=== PATIENT | male | born 1965 | race Hispanic/Latino ===

== ENCOUNTER 2024-04-29 19:59 | Inpatient (IN) | payer OTHER ==
[~2024-04-29] VITALS: Ht 175.3 cm; Wt 50.3 kg
[2024-04-29 23:40] VITALS: BP 149/84; PULSE 80; RESP 19
[2024-04-30] MEDS ORDERED: HEPARIN 5,000 UNIT VIAL SQ SCH (03:30)
[2024-04-30] MEDS ORDERED: GLUCAGON 1MG KIT 1 MG ML IM PRN (03:30)
[2024-04-30] MEDS ORDERED: ONDANSETRON 4MG INJ IV PRN (03:30)
[2024-04-30] MEDS ORDERED: DEXTROSE 50%-WATER 50 ML DISP.SYRIN IV PRN (03:30)
[2024-04-30 04:18] VITALS: BP 149/78; PULSE 74; RESP 18
[2024-04-30 05:28] LABS: BASOPHILS # (AUTO) 0.05 K/uL (0.00-0.20); BASOPHILS % (AUTO) 0.5 % (0.0-5.0); EOSINOPHILS # (AUTO) 0.18 K/uL (0.00-0.70); EOSINOPHILS % (AUTO) 1.8 % (0.0-8.0); HEMATOCRIT 28.2 % (42-54); IMMATURE GRANULOCYTE ABSOLUTE 0.46 K/uL (0-1); LYMPHOCYTES # (AUTO) 1.6 K/uL (1.0-4.8); MEAN CORPUSCULAR HEMOGLOBIN 33.6 pg (27.0-33.0); MEAN CORPUSCULAR HGB CONC 34.8 g/dL (32.0-36.0); MEAN CORPUSCULAR VOLUME 96.6 fL (79-99); MONOCYTES # (AUTO) 0.8 K/uL (0.1-1.0); MONOCYTES % (AUTO) 7.6 % (3.0-13.0); NEUTROPHILS # (AUTO) 7.1 K/uL (1.8-7.7); NEUTROPHILS % (AUTO) 69.6 % (40.0-77.0); PLATELET COUNT (AUTO) 228 K/uL (130-400); RED BLOOD CELL COUNT(AUTO) 2.92 MIL/uL (4.50-6.20); RED CELL DISTRIBUTION WIDTH 12.4 % (11.0-15.5); WHITE BLOOD COUNT (AUTO) 10.2 K/uL (4.8-10.8)
[2024-04-30 05:41] LABS: INR 1.03 (0.85-1.15); PROTHROMBIN TIME 11.1 SEC (9.6-11.6)
[2024-04-30 05:43] LABS: PARTIAL THROMBOPLASTIN TIME 29.5 SEC (26.3-35.5)
[2024-04-30 05:50] LABS: ALBUMIN 2.8 g/dL (3.5-5.0); BILIRUBIN,TOTAL 0.4 mg/dL (0.2-1.0); CREATININE 2.4 mg/dL (0.5-1.3); MAGNESIUM 1.1 mg/dL (1.80-2.40); POTASSIUM 3.5 mmol/L (3.5-5.1); TOTAL PROTEIN, SERUM 6.8 g/dL (6.0-8.3)
[2024-04-30 06:26] LABS: B-TYPE NATRIURETIC PEPTIDE 125 pg/mL (0-100)
[2024-04-30] MEDS: INSULIN HUMULIN R 100 UNIT/ML 3ML SQ SCH (07:30)
[2024-04-30 08:00] VITALS: BP 150/77; PULSE 76; RESP 18
[2024-04-30] MEDS: FAMOTIDINE 20MG VIAL IV SCH (08:56)
[2024-04-30] MEDS: ZOSYN 3.375GM+NS 50ML IV SCH (08:56)
[2024-04-30] MEDS ORDERED: ASPIRIN 81 MG EC TAB PO SCH (09:00)
[2024-04-30 12:00] VITALS: BP 152/80; PULSE 88; RESP 18
[2024-04-30] MEDS ORDERED: TELM1TAB42 PO (14:50)
[2024-04-30] MEDS ORDERED: METF-445 PO (14:51)
[2024-04-30 16:00] VITALS: BP 141/91; PULSE 83; RESP 18
[2024-04-30] MEDS: TAMSULOSIN HCL 0.4 MG CAP.ER.24H PO SCH (17:39)
[2024-04-30 20:00] VITALS: O2SAT 98
[2024-04-30 20:29] VITALS: BP 152/86; PULSE 76; RESP 19
[2024-05-01] VITALS (8 sets, daily range): BP systolic 140–160; BP diastolic 72–87; PULSE 72–94; RESP 16–19; O2SAT 98
[2024-05-01] MEDS: HYDRALAZINE 20MG/ML VIAL IV PRN (00:15)
[2024-05-01 04:42] LABS: BASOPHILS # (AUTO) 0.04 K/uL (0.00-0.20); BASOPHILS % (AUTO) 0.3 % (0.0-5.0); EOSINOPHILS # (AUTO) 0.14 K/uL (0.00-0.70); EOSINOPHILS % (AUTO) 1.1 % (0.0-8.0); HEMATOCRIT 29.9 % (42-54); LYMPHOCYTES # (AUTO) 1.5 K/uL (1.0-4.8); LYMPHOCYTES % (AUTO) 12.1 % (21.0-51.0); MEAN CORPUSCULAR HEMOGLOBIN 33.7 pg (27.0-33.0); MEAN CORPUSCULAR HGB CONC 34.1 g/dL (32.0-36.0); MEAN CORPUSCULAR VOLUME 98.7 fL (79-99); MONOCYTES % (AUTO) 8.1 % (3.0-13.0); NEUTROPHILS # (AUTO) 9.5 K/uL (1.8-7.7); NEUTROPHILS % (AUTO) 74.5 % (40.0-77.0); PLATELET COUNT (AUTO) 224 K/uL (130-400); RED BLOOD CELL COUNT(AUTO) 3.03 MIL/uL (4.50-6.20); RED CELL DISTRIBUTION WIDTH 12.5 % (11.0-15.5); WHITE BLOOD COUNT (AUTO) 12.8 K/uL (4.8-10.8)
[2024-05-01 05:13] LABS: % IRON SATURATION 13.5 % (30-44)
[2024-05-01 05:17] LABS: HEMOGLOBIN A1C 7.9 % (4.0-6.0)
[2024-05-01 05:40] LABS: B-TYPE NATRIURETIC PEPTIDE 143 pg/mL (0-100)
[2024-05-01 05:44] LABS: BILIRUBIN,TOTAL 0.5 mg/dL (0.2-1.0); CREATININE 2.5 mg/dL (0.5-1.3); MAGNESIUM 1.1 mg/dL (1.80-2.40); POTASSIUM 3.3 mmol/L (3.5-5.1); URIC ACID 6.9 mg/dL (2.6-7.2)
[2024-05-01] MEDS ORDERED: MAGNESIUM 2GM PREMIX 50ML 50 ML IV SCH (08:30)
[2024-05-01] MEDS ORDERED: POTASSIUM CHLORIDE 10% ELIXIR 20 MEQ/15 ML UDCUP PO PRN (08:30)
[2024-05-01] MEDS ORDERED: POTASSIUM CHLORIDE 20MEQ/100ML 100 ML IV PRN (08:30)
[2024-05-01] MEDS: AMLODIPINE 5 MG TAB PO SCH (09:00)
[2024-05-01] MEDS: Vitamin B Complex/Vit C/Folic Acid PO SCH (09:00)
[2024-05-01] MEDS: MAGNESIUM 2GM PREMIX 50ML 50 ML IV PRN (09:01)
[2024-05-01 11:27] LABS: CHOLESTEROL 123 mg/dL (<200); HDL CHOLESTEROL 34 mg/dL (29-71); LDL DIRECT 42 mg/dL (0-99); TRIGLYCERIDES 363 mg/dL (30-200)
[2024-05-01] MEDS: KCL 20 MEQ ERTAB PO PRN (15:21)
[2024-05-01 17:51] LABS: APPEARANCE,URINE CLEAR (CLEAR); BILIRUBIN,URINE NEGATIVE (NEGATIVE); COLOR,URINE LIGHT-YELLOW (YELLOW); GLUCOSE, URINE (UA) >=1000 mg/dL (NEGATIVE); KETONES,URINE 5 mg/dL (NEGATIVE); LEUKOCYTE ESTERASE ,URINE NEGATIVE Leu/uL (NEGATIVE); NITRATE,URINE NEGATIVE (NEGATIVE); PROTEIN,URINE 70 mg/dL (NEGATIVE); UROBILINOGEN,URINE 0.2 mg/dL (0.2-1.0)
[2024-05-01 17:55] LABS: ADD UA MICROSCOPIC YES
[2024-05-01 17:56] LABS: MUCUS,URINE RARE LPF (None Seen); RBC,URINE 0-1 /HPF (0-1); SQUAMOUS EPITHELIAL CELL,UR RARE /HPF (0-2)
[2024-05-01] MEDS: ZOSYN 3.375GM+NS 50ML IV SCH (20:23)
[2024-05-02] VITALS (8 sets, daily range): BP systolic 115–164; BP diastolic 68–93; PULSE 67–92; RESP 16–20; O2SAT 96
[2024-05-02 04:22] LABS: BASOPHILS # (AUTO) 0.04 K/uL (0.00-0.20); BASOPHILS % (AUTO) 0.2 % (0.0-5.0); EOSINOPHILS # (AUTO) 0.15 K/uL (0.00-0.70); EOSINOPHILS % (AUTO) 0.9 % (0.0-8.0); HEMATOCRIT 28.1 % (42-54); IMMATURE GRANULOCYTE ABSOLUTE 0.36 K/uL (0-1); LYMPHOCYTES # (AUTO) 1.7 K/uL (1.0-4.8); LYMPHOCYTES % (AUTO) 9.6 % (21.0-51.0); MEAN CORPUSCULAR HEMOGLOBIN 32.6 pg (27.0-33.0); MEAN CORPUSCULAR HGB CONC 33.8 g/dL (32.0-36.0); MEAN CORPUSCULAR VOLUME 96.6 fL (79-99); MONOCYTES # (AUTO) 1.3 K/uL (0.1-1.0); MONOCYTES % (AUTO) 7.6 % (3.0-13.0); NEUTROPHILS # (AUTO) 13.8 K/uL (1.8-7.7); NEUTROPHILS % (AUTO) 79.6 % (40.0-77.0); PLATELET COUNT (AUTO) 228 K/uL (130-400); RED BLOOD CELL COUNT(AUTO) 2.91 MIL/uL (4.50-6.20); RED CELL DISTRIBUTION WIDTH 12.7 % (11.0-15.5); WHITE BLOOD COUNT (AUTO) 17.4 K/uL (4.8-10.8)
[2024-05-02 04:38] LABS: ALBUMIN 2.9 g/dL (3.5-5.0); BILIRUBIN,TOTAL 0.5 mg/dL (0.2-1.0); CREATININE 2.6 mg/dL (0.5-1.3); MAGNESIUM 1.9 mg/dL (1.80-2.40); PHOSPHORUS 3.1 mg/dL (2.5-4.9); TOTAL PROTEIN, SERUM 7.1 g/dL (6.0-8.3)
[2024-05-02] MEDS: ACETAMINOPHEN WITH CODEINE 1 TAB TAB PO PRN (12:30)
[2024-05-02 13:55] LABS: SARS-CoV-2, RNA, NAAT NEGATIVE SARS CoV-2 (NEGATIVE)
[2024-05-02 14:03] LABS: INFLUENZA TYPE A Negative For Type A (NEGATIVE); INFLUENZA TYPE B Negative For Type B (NEGATIVE)
[2024-05-03 03:44] VITALS: BP 141/81; PULSE 81; RESP 16
[2024-05-03 04:41] LABS: MEAN CORPUSCULAR HEMOGLOBIN 33.1 pg (27.0-33.0); MEAN CORPUSCULAR HGB CONC 34.1 g/dL (32.0-36.0); MEAN CORPUSCULAR VOLUME 97.1 fL (79-99); RED BLOOD CELL COUNT(AUTO) 2.78 MIL/uL (4.50-6.20); RED CELL DISTRIBUTION WIDTH 12.7 % (11.0-15.5); WHITE BLOOD COUNT (AUTO) 16.1 K/uL (4.8-10.8)
[2024-05-03 04:54] LABS: ALBUMIN 2.7 g/dL (3.5-5.0); BILIRUBIN,TOTAL 0.7 mg/dL (0.2-1.0); CREATININE 2.5 mg/dL (0.5-1.3); PHOSPHORUS 3.6 mg/dL (2.5-4.9); TOTAL PROTEIN, SERUM 7.1 g/dL (6.0-8.3)
[2024-05-03] MEDS ORDERED: COLC0.6T73 PO (05:01)
[2024-05-03] MEDS ORDERED: ALLO300T2 PO (05:01)
[2024-05-03 07:41] VITALS: BP 131/80; PULSE 88; RESP 18
[2024-05-03] MEDS: ALLOPURINOL 300 MG TABLET PO SCH (08:43)
[2024-05-03] MEDS: COLCHICINE 0.6 MG TABLET PO SCH (08:43)
[2024-05-03] MEDS: TELMISARTAN/HYDROCHLOROTHIAZID 80/12.5 MG TAB PO SCH (08:51)
[2024-05-03 09:00] VITALS: O2SAT 95
[2024-05-03 11:13] VITALS: BP 127/65; PULSE 78; RESP 18
[2024-05-03] MEDS ORDERED: AMLODIPINE 5 MG TAB PO PRN (13:00)
[2024-05-03 15:12] VITALS: BP 113/72; PULSE 81; RESP 16
[2024-05-03 20:00] VITALS: BP 111/65; PULSE 70; RESP 16
[2024-05-04] VITALS (8 sets, daily range): BP systolic 102–138; BP diastolic 55–82; PULSE 55–98; RESP 17–20; O2SAT 95–99
[2024-05-04 05:25] LABS: BASOPHILS # (AUTO) 0.03 K/uL (0.00-0.20); BASOPHILS % (AUTO) 0.3 % (0.0-5.0); EOSINOPHILS # (AUTO) 0.15 K/uL (0.00-0.70); EOSINOPHILS % (AUTO) 1.3 % (0.0-8.0); HEMATOCRIT 25.4 % (42-54); IMMATURE GRANULOCYTE ABSOLUTE 0.22 K/uL (0-1); LYMPHOCYTES # (AUTO) 1.6 K/uL (1.0-4.8); LYMPHOCYTES % (AUTO) 14.6 % (21.0-51.0); MEAN CORPUSCULAR HEMOGLOBIN 32.8 pg (27.0-33.0); MEAN CORPUSCULAR HGB CONC 33.9 g/dL (32.0-36.0); MEAN CORPUSCULAR VOLUME 96.9 fL (79-99); MONOCYTES # (AUTO) 1.3 K/uL (0.1-1.0); MONOCYTES % (AUTO) 11.8 % (3.0-13.0); NEUTROPHILS # (AUTO) 7.8 K/uL (1.8-7.7); PLATELET COUNT (AUTO) 220 K/uL (130-400); RED BLOOD CELL COUNT(AUTO) 2.62 MIL/uL (4.50-6.20); RED CELL DISTRIBUTION WIDTH 12.7 % (11.0-15.5); WHITE BLOOD COUNT (AUTO) 11.2 K/uL (4.8-10.8)
[2024-05-04 05:46] LABS: ALBUMIN 2.4 g/dL (3.5-5.0); BILIRUBIN,TOTAL 0.5 mg/dL (0.2-1.0); CREATININE 2.7 mg/dL (0.5-1.3); MAGNESIUM 1.4 mg/dL (1.80-2.40); POTASSIUM 3.6 mmol/L (3.5-5.1); TOTAL PROTEIN, SERUM 6.8 g/dL (6.0-8.3)
[2024-05-04 05:50] LABS: B-TYPE NATRIURETIC PEPTIDE 87 pg/mL (0-100)
[2024-05-04] MEDS: COLCHICINE 0.6 MG TABLET PO SCH (08:44)
[2024-05-05] VITALS: BP 112/64; PULSE 82; RESP 18
[2024-05-05 03:42] VITALS: BP 133/69; PULSE 76; RESP 18
[2024-05-05 04:08] LABS: BASOPHILS # (AUTO) 0.04 K/uL (0.00-0.20); BASOPHILS % (AUTO) 0.4 % (0.0-5.0); EOSINOPHILS # (AUTO) 0.16 K/uL (0.00-0.70); EOSINOPHILS % (AUTO) 1.7 % (0.0-8.0); IMMATURE GRANULOCYTE ABSOLUTE 0.18 K/uL (0-1); LYMPHOCYTES # (AUTO) 1.3 K/uL (1.0-4.8); LYMPHOCYTES % (AUTO) 13.5 % (21.0-51.0); MEAN CORPUSCULAR HEMOGLOBIN 32.7 pg (27.0-33.0); MEAN CORPUSCULAR VOLUME 99.3 fL (79-99); MONOCYTES # (AUTO) 1.3 K/uL (0.1-1.0); MONOCYTES % (AUTO) 13.7 % (3.0-13.0); NEUTROPHILS # (AUTO) 6.4 K/uL (1.8-7.7); NEUTROPHILS % (AUTO) 68.8 % (40.0-77.0); PLATELET COUNT (AUTO) 282 K/uL (130-400); RED BLOOD CELL COUNT(AUTO) 2.72 MIL/uL (4.50-6.20); RED CELL DISTRIBUTION WIDTH 12.7 % (11.0-15.5); WHITE BLOOD COUNT (AUTO) 9.3 K/uL (4.8-10.8)
[2024-05-05 04:26] LABS: ALBUMIN 2.5 g/dL (3.5-5.0); BILIRUBIN,TOTAL 0.4 mg/dL (0.2-1.0); CREATININE 2.6 mg/dL (0.5-1.3); MAGNESIUM 1.7 mg/dL (1.80-2.40); POTASSIUM 4.4 mmol/L (3.5-5.1); TOTAL PROTEIN, SERUM 7.4 g/dL (6.0-8.3)
[2024-05-05 08:00] VITALS: BP 125/65; PULSE 86; RESP 18; O2SAT 99
[2024-05-05 11:00] VITALS: BP 106/61; PULSE 79; RESP 18
[2024-05-05] MEDS ORDERED: AMLO5TAB4 PO ×2 (13:38→15:02)
[2024-05-05] MEDS ORDERED: TAMS-1 PO ×2 (13:38→15:02)
== END 2024-05-05 15:30 | disposition home or self-care (01) | DRG 871 ==
LOC: EDBD → 4BH 23:36
PROVIDERS: ADMIT Hospitalist; ATTEND Hospitalist
DX: A41.50 Gram-negative sepsis, unspecified (principal); E43 Unspecified severe protein-calorie malnutrition; N18.6 End stage renal disease; N17.9 Acute kidney failure, unspecified; I12.0 Hypertensive chronic kidney disease with stage 5 chronic kidney disease or end stage renal disease; Z68.1 Body mass index [BMI] 19.9 or less, adult; N13.6 Pyonephrosis; E87.20 Acidosis, unspecified; E87.5 Hyperkalemia; E11.22 Type 2 diabetes mellitus with diabetic chronic kidney disease; M10.9 Gout, unspecified; G47.33 Obstructive sleep apnea (adult) (pediatric); E66.9 Obesity, unspecified; E87.70 Fluid overload, unspecified; E83.42 Hypomagnesemia; E11.65 Type 2 diabetes mellitus with hyperglycemia; D64.9 Anemia, unspecified; N20.0 Calculus of kidney; K76.0 Fatty (change of) liver, not elsewhere classified; E66.01 Morbid (severe) obesity due to excess calories; Z83.3 Family history of diabetes mellitus; Z99.2 Dependence on renal dialysis; Z87.891 Personal history of nicotine dependence
CPT/HCPCS: 36415; 74150; 74176; 76700; 80053; 80061; 81001; 82306; 82607; 82728; 82948; 83036; 83540; 83550; 83735; 83880; 83970; 84100; 84425; 84484; 84550; 85025; 85027; 85610; 85730; 87040; 87635; 87804; G0378; J0360; J1815; J2543; J3475; J3490; A4600